=== PATIENT | male | born 1950 | race American Indian/Alaskan Native ===

== ENCOUNTER 2018-12-18 21:21 | Inpatient (IN) | payer MEDICARE ==
[2018-12-18] MEDS ORDERED: NACL 0.9% 1000 ML 1,000 ML IV ONE (21:36)
[2018-12-18 22:15] LABS: Hematocrit 22.3 % (35.5-45.6); Hemoglobin 6.5 gm/dl (11.8-15.2); Mean Corpuscular Volume 59 fl (84-94)
[2018-12-18 22:16] LABS: Mean Corpuscular HGB Conc 29 % (32-34); Red Cell Distribution Width 20.2 % (13.2-15.2)
[2018-12-18 22:17] LABS: Basophils % (Auto) 0.4 % (0.0-1.8); Eosinophils % (Auto) 0.4 % (0.0-4.3); Lymphocytes # (Auto) 2.7 K/mm3 (1.2-5.4); Lymphocytes % (Auto) 40.9 % (13.4-35.0); Monocytes # (Auto) 0.4 K/mm3 (0.0-0.8); Platelet Count 280 K/mm3 (140-440)
[2018-12-18 22:28] LABS: BUN/Creatinine Ratio 28; Blood Urea Nitrogen 25 mg/dL (9-20); Calcium 7.9 mg/dL (8.4-10.2); Hemolysis Index 9
[2018-12-19 00:05] LABS: Bacteria,Urine 3+ /HPF (Negative); Bilirubin,Urine NEG (Negative); Blood,Urine NEG (Negative); Color,Urine Yellow (Yellow); Mucus,Urine FEW /HPF; Urobilinogen,Urine < 2.0 mg/dL (<2.0)
[2018-12-19] MEDS ORDERED: NACL 0.9% 500 ML 500 ML IV ONE (00:08)
[2018-12-19 00:16] LABS: WBC,Urine > 182.0 /HPF (0.0-6.0)
[2018-12-19] MEDS ORDERED: ROCEPHIN/NS 1 GM/50 ML 1 GM/50 ML BAG IV ONE (01:00)
[2018-12-19] MEDS ORDERED: NACL 0.9% 1000 ML 1,000 ML ONE (01:01)
[2018-12-19] MEDS ORDERED: PROTONIX IV ONE (01:02)
--- NOTE | 2018-12-19 01:02 | Emergency Department Report ---
ED General Adult HPI - General Chief complaint: Altered Mental Status Stated complaint: ALTERED MENTAL STATUS Time Seen by Provider: 12/18/18 21:36 Source: EMS Mode of arrival: Stretcher Limitations: Physical Limitation - History of Present Illness Initial comments: Patient is a 68-year-old black male with a past history of CVA who is in a fpc who is presenting secondary to a low hemoglobin. The patient had blood work done at his facility earlier today that showed that his hemoglobin was 6.1. Patient's more sluggish and less talkative than normal. Patient is a poor historian secondary to previous stroke and expressive aphasia. No other additional information is known. When I asked the patient high he felt he was able to say "bad" - Related Data Home Medications Medication Instructions Recorded Confirmed Last Taken Acetaminophen [Acetaminophen TAB] 650 mg PO Q6HR PRN 08/29/17 11/05/17 Unknown Antacid [Alum-Mag Hydrox-Simeth 30 ml PO Q4HR PRN 08/29/17 11/05/17 Unknown [id number]/5Ml] Divalproex Dr [Depakote Dr] 500 mg PO DAILY 08/29/17 11/05/17 Unknown Divalproex ER [Depakote ER] 1,000 mg PO HS 08/29/17 11/05/17 Unknown Escitalopram [Lexapro] 10 mg PO HS 08/29/17 11/05/17 Unknown Finasteride [Proscar] 5 mg PO QDAY 08/29/17 11/05/17 Unknown Folic Acid [Folvite] 1 mg PO QDAY 08/29/17 11/05/17 Unknown Lactulose [Constulose] 10 ml PO Q24HR 08/29/17 11/05/17 Unknown Lisinopril [Zestril] 10 mg PO QDAY 08/29/17 11/05/17 Unknown Magnesium Hydroxide [Milk of 30 ml PO Q24H 08/29/17 11/05/17 Unknown Magnesia] OXcarbazepine [Trileptal] 300 mg PO BID 08/29/17 11/05/17 Unknown Pantoprazole [Protonix TAB] 40 mg PO QDAY 08/29/17 11/05/17 Unknown Polyethylene Glycol 3350 17 gm PO DAILY PRN 08/29/17 11/05/17 Unknown [Smoothlax] Tamsulosin [Flomax] 0.4 mg PO HS 08/29/17 11/05/17 Unknown lamoTRIgine [LaMICtal] 150 mg PO QDAY 08/29/17 11/05/17 Unknown levETIRAcetam [Keppra TAB] 750 mg PO BID 08/29/17 11/05/17 Unknown risperiDONE [Risperdal] 2 mg PO BID 08/29/17 11/05/17 Unknown Ondansetron [Zofran INJ] 4 mg IM Q6H PRN 11/05/17 11/05/17 Unknown Previous Rx's Medication Instructions Recorded Last Taken Type oxyCODONE /ACETAMINOPHEN [Percocet 1 tab PO Q6HR PRN #7 tablet 11/10/17 Unknown Rx 5/325 mg] Allergies Allergy/AdvReac Type Severity Reaction Status Date / Time No Known Allergies Allergy Unverified 08/29/17 12:01 ED Review of Systems ROS: Stated complaint: ALTERED MENTAL STATUS Other details as noted in HPI Comment: All other systems reviewed and negative ED Past Medical Hx - Past Medical History Hx Hypertension: Yes Hx GERD: Yes Hx Seizures: Yes Hx Psychiatric Treatment: Yes (depression, Schizophrenia) Hx HIV: No Additional medical history: BPH, Cerebral infarction, Cerebralvascular disease - Social History Smoking Status: Unknown if ever smoked - Medications Home Medications: Home Medications Medication Instructions Recorded Confirmed Last Taken Type Acetaminophen [Acetaminophen TAB] 650 mg PO Q6HR PRN 08/29/17 11/05/17 Unknown History Antacid [Alum-Mag Hydrox-Simeth 30 ml PO Q4HR PRN 08/29/17 11/05/17 Unknown History [phone]/5Ml] Divalproex Dr [Depakote Dr] 500 mg PO DAILY 08/29/17 11/05/17 Unknown History Divalproex ER [Depakote ER] 1,000 mg PO HS 08/29/17 11/05/17 Unknown History Escitalopram [Lexapro] 10 mg PO HS 08/29/17 11/05/17 Unknown History Finasteride [Proscar] 5 mg PO QDAY 08/29/17 11/05/17 Unknown History Folic Acid [Folvite] 1 mg PO QDAY 08/29/17 11/05/17 Unknown History Lactulose [Constulose] 10 ml PO Q24HR 08/29/17 11/05/17 Unknown History Lisinopril [Zestril] 10 mg PO QDAY 08/29/17 11/05/17 Unknown History Magnesium Hydroxide [Milk of 30 ml PO Q24H 08/29/17 11/05/17 Unknown History Magnesia] OXcarbazepine [Trileptal] 300 mg PO BID 08/29/17 11/05/17 Unknown History Pantoprazole [Protonix TAB] 40 mg PO QDAY 08/29/17 11/05/17 Unknown History Polyethylene Glycol 3350 17 gm PO DAILY PRN 08/29/17 11/05/17 Unknown History [Smoothlax] Tamsulosin [Flomax] 0.4 mg PO HS 08/29/17 11/05/17 Unknown History lamoTRIgine [LaMICtal] 150 mg PO QDAY 08/29/17 11/05/17 Unknown History levETIRAcetam [Keppra TAB] 750 mg PO BID 08/29/17 11/05/17 Unknown History risperiDONE [Risperdal] 2 mg PO BID 08/29/17 11/05/17 Unknown History Ondansetron [Zofran INJ] 4 mg IM Q6H PRN 11/05/17 11/05/17 Unknown History oxyCODONE /ACETAMINOPHEN [Percocet 1 tab PO Q6HR PRN #7 tablet 11/10/17 Unknown Rx 5/325 mg] ED Physical Exam - General Limitations: Physical Limitation General appearance: alert, in no apparent distress - Head Head exam: Present: atraumatic, normocephalic - Eye Eye exam: Present: normal appearance, PERRL, EOMI - ENT ENT exam: Present: mucous membranes moist - Neck Neck exam: Present: normal inspection - Respiratory Respiratory exam: Present: normal lung sounds bilaterally. Absent: respiratory distress, wheezes, rales, rhonchi - Cardiovascular Cardiovascular Exam: Present: regular rate, normal rhythm. Absent: systolic murmur, diastolic murmur, rubs, gallop - GI/Abdominal GI/Abdominal exam: Present: soft, normal bowel sounds. 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 Absent: rash ED Course Vital Signs 12/18/18 12/18/18 12/18/18 21:34 21:46 21:51 Temperature 97.6 F Pulse Rate 87 90 86 Respiratory 12 14 18 Rate Blood Pressure 96/36 96/36 O2 Sat by Pulse 93 99 96 Oximetry 12/18/18 12/18/18 12/18/18 22:00 22:16 22:30 Temperature Pulse Rate 84 86 80 Respiratory 14 15 17 Rate Blood Pressure 96/36 96/36 O2 Sat by Pulse 98 98 98 Oximetry ED Medical Decision Making - Lab Data Result diagrams: 12/18/18 21:47 12/18/18 21:47 Lab Results 12/18/18 12/18/18 12/18/18 Range/Units 21:47 21:47 23:41 WBC 6.6 (4.5-11.0) K/mm3 RBC 3.80 (3.65-5.03) M/mm3 Hgb 6.5 L (11.8-15.2) gm/dl Hct 22.3 L (35.5-45.6) % MCV 59 L (84-94) fl MCH 17 L (28-32) pg MCHC 29 L (32-34) % RDW 20.2 H (13.2-15.2) % Plt Count 280 (140-440) K/mm3 Lymph % (Auto) 40.9 H (13.4-35.0) % [place] % (Auto) 6.0 (0.0-7.3) % Eos % (Auto) 0.4 (0.0-4.3) % Baso % (Auto) 0.4 (0.0-1.8) % Lymph # 2.7 (1.2-5.4) K/mm3 [place] # 0.4 (0.0-0.8) K/mm3 Eos # 0.0 (0.0-0.4) K/mm3 Baso # 0.0 (0.0-0.1) K/mm3 Seg Neutrophils % 52.3 (40.0-70.0) % Seg Neutrophils # 3.5 (1.8-7.7) K/mm3 Sodium 137 (137-145) mmol/L Potassium 3.8 (3.6-5.0) mmol/L Chloride 97.5 L (98-107) mmol/L Carbon Dioxide 25 (22-30) mmol/L Anion Gap 18 mmol/L BUN 25 H (9-20) mg/dL Creatinine 0.9 (0.8-1.5) mg/dL Estimated GFR > 60 ml/min BUN/Creatinine Ratio 28 % Glucose 82 (75-100) mg/dL Calcium 7.9 L (8.4-10.2) mg/dL Urine Color Yellow (Yellow) Urine Turbidity Cloudy (Clear) Urine pH 7.0 (5.0-7.0) Ur Specific [place] 1.012 (1.003-1.030) Urine Protein 30 mg/dl (Negative) mg/dL Urine Glucose (UA) Neg (Negative) mg/dL Urine Ketones Neg (Negative) mg/dL Urine Blood Neg (Negative) Urine Nitrite Neg (Negative) Urine Bilirubin Neg (Negative) Urine Urobilinogen < 2.0 (<2.0) mg/dL Ur Leukocyte Esterase Lg (Negative) Urine WBC (Auto) > 182.0 H (0.0-6.0) /HPF Urine RBC (Auto) 8.0 (0.0-6.0) /HPF U Epithel Cells (Auto) 77.0 H (0-13.0) /HPF Urine Bacteria (Auto) 3+ (Negative) /HPF Ur Transition Epith Cell 2 /HPF Urine Mucus Few /HPF - Medical Decision Making Patient's Y positive has a low hemoglobin. Patient will be transfused. Patient also with the urinary tract infection given Rocephin. Difficult to obtain IV on the patient and did undergo multiple sticks but I was able to place a long 18 and the right upper arm. Blood pressure responded well to fluids. Patient to be admitted to the hospitalist service. Critical Care Time: Yes (30) Critical care attestation.: If time is entered above; I have spent that time in minutes in the direct care of this critically ill patient, excluding procedure time. ED Disposition Clinical Impression: GI bleed Qualifiers: GI bleed type/associated pathology: unspecified gastrointestinal hemorrhage type Qualified Code(s): K92.2 - Gastrointestinal hemorrhage, unspecified Anemia Qualifiers: Anemia type: unspecified type Qualified Code(s): D64.9 - Anemia, unspecified UTI (urinary tract infection) Qualifiers: Urinary tract infection type: acute cystitis Hematuria presence: without hematuria Qualified Code(s): N30.00 - Acute cystitis without hematuria Disposition: OP ADMIT IP TO THIS HOSP Is pt being admited?: Yes Does the pt Need Aspirin: No Condition: Stable Time of Disposition: 01:03
[2018-12-19] MEDS ORDERED: ZOFRAN IV PRN (01:17)
[2018-12-19] MEDS ORDERED: SODIUM CHLORIDE FLUSH SYRINGE 10 ML IV PRN (01:17)
[2018-12-19] MEDS ORDERED: TYLENOL PO PRN (01:17)
[2018-12-19 01:32] LABS: INR 1.04 (0.87-1.13)
[2018-12-19 01:33] LABS: Partial Thromboplastin Time 23.1 Sec. (24.2-36.6)
[2018-12-19] MEDS ORDERED: NACL 0.9% 1000 ML 1,000 ML IV SCH (02:00)
--- NOTE | 2018-12-19 02:32 | History and Physical Report ---
<ALIDA IRWIN - Last Filed: 12/19/18 05:37> History of Present Illness Date of examination: 12/19/18 Date of admission: 12/19/2018 Chief complaint: AMS History of present illness: Patient is a 68-year-old black male with PMHx of Hypertension, CVA (right sided hemiparesis) who was sent to the ER from a group home for evaluation with low hemoglobin. According to the ER note patient had blood work done at his facility earlier today, the results showed his hemoglobin was 6.1., according to EMS, group home staff had reported that the patient looks more tired and sleepy today and he is less talkative than normal. Physical exam showed that the patient is lethargic, open eyes to name, answer to questions briefly, unable to move his right side due to contraction, Patient is disorientated and unable to provide medical history. Review of patient's labs showed a hemoglobin of 6.5, UA positive for UTI, guaiac stool is positive in the ER, patient was using one pack of red blood cells in the ER and admitted for further evaluation of face GI bleed. 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) Family history: no significant family history Medications and Allergies Allergies Allergy/AdvReac Type Severity Reaction Status Date / Time No Known Allergies Allergy Unverified 08/29/17 12:01 Home Medications Medication Instructions Recorded Confirmed Last Taken Type Acetaminophen [Acetaminophen TAB] 650 mg PO Q6HR PRN 08/29/17 12/19/18 Unknown History Escitalopram [Lexapro] 10 mg PO HS 08/29/17 12/19/18 Unknown History Folic Acid [Folvite] 1 mg PO QDAY 08/29/17 12/19/18 Unknown History Lactulose [Constulose] 10 ml PO Q24HR PRN 08/29/17 12/19/18 Unknown History Lisinopril [Zestril] 10 mg PO QDAY 08/29/17 12/19/18 Unknown History Magnesium Hydroxide [Milk of 30 ml PO Q72H 08/29/17 12/19/18 Unknown History Magnesia] OXcarbazepine [Trileptal] 300 mg PO BID 08/29/17 12/19/18 Unknown History Pantoprazole [Protonix TAB] 40 mg PO QDAY 08/29/17 12/19/18 Unknown History Polyethylene Glycol 3350 17 gm PO DAILY PRN 08/29/17 12/19/18 Unknown History [Smoothlax] Tamsulosin [Flomax] 0.4 mg PO HS 08/29/17 12/19/18 Unknown History risperiDONE [Risperdal] 1.5 mg PO QHS 08/29/17 12/19/18 Unknown History Ondansetron [Zofran INJ] 4 mg IM Q6H PRN 11/05/17 12/19/18 Unknown History Antacid Ds (Nf) [Alum-Mag 30 ml PO Q4HR 12/19/18 12/19/18 Unknown History Hydrox-Simeth [id number]/5Ml (Nf)] Bisacodyl [Dulcolax suppos] 10 mg IN QDAY PRN 12/19/18 12/19/18 Unknown History Glycopyrrolate [Robinul] 1 mg PO TID 12/19/18 12/19/18 Unknown History Sennosides [Senokot] 17.2 mg PO QHS 12/19/18 12/19/18 Unknown History Sodium Phosphate,[place]-Dibasic 118 ml RC BID PRN 12/19/18 12/19/18 Unknown History [Fleet Enema] VALPROIC ACID Liq [DepaKENE Liq] 10 mg PO AC 12/19/18 12/19/18 Unknown History levETIRAcetam [Keppra] 7.5 ml PO BID 12/19/18 12/19/18 Unknown History Active Meds: Active Medications Acetaminophen (Tylenol) 650 mg PO Q4H PRN PRN Reason: Pain MILD(1-3)/Fever >100.5/CHRISTINE Sodium Chloride (Nacl 0.9% 1000 Ml) 1,000 mls @ 100 mls/hr IV DIRECT TIARRA Pantoprazole Sodium 80 mg/ (Sodium Chloride) 100 mls @ 10 mls/hr IV DIRECT TIARRA Ondansetron HCl (Zofran) 4 mg IV Q8H PRN PRN Reason: Nausea And Vomiting Sodium Chloride (Sodium Chloride Flush Syringe 10 Ml) 10 ml IV BID TIARRA Sodium Chloride (Sodium Chloride Flush Syringe 10 Ml) 10 ml IV PRN PRN PRN Reason: LINE FLUSH Review of Systems ROS unobtainable: due to mental status Exam - Constitutional Vitals: Temp Pulse Resp BP Pulse Ox 97.6 F 80 17 96/36 98 12/18/18 21:51 12/18/18 22:30 12/18/18 22:30 12/18/18 22:30 12/18/18 22:30 General appearance: Present: mild distress - EENT ENT: hearing intact - Neck Neck: Present: normal ROM - Respiratory Respiratory effort: normal Respiratory: bilateral: CTA - Cardiovascular Rhythm: regular Heart Sounds: Present: S1 & S2 - Extremities Extremities: no ischemia Peripheral Pulses: within normal limits - Abdominal General gastrointestinal: Present: non-tender, non-distended Male genitourinary: Present: deferred - Rectal Rectal Exam: deferred - Integumentary Integumentary: Present: warm, dry - Musculoskeletal Musculoskeletal: right sided weakness - Psychiatric Psychiatric: depressed - Neurologic Neurologic: focal deficits Results - Labs CBC & Chem 7: 12/18/18 21:47 12/18/18 21:47 Labs: Laboratory Last Values WBC 6.6 K/mm3 (4.5-11.0) 12/18/18 21:47 RBC 3.80 M/mm3 (3.65-5.03) 12/18/18 21:47 Hgb 6.5 gm/dl (11.8-15.2) L 12/18/18 21:47 Hct 22.3 % (35.5-45.6) L 12/18/18 21:47 MCV 59 fl (84-94) L 12/18/18 21:47 MCH 17 pg (28-32) L 12/18/18 21:47 MCHC 29 % (32-34) L 12/18/18 21:47 RDW 20.2 % (13.2-15.2) H 12/18/18 21:47 Plt Count 280 K/mm3 (140-440) 12/18/18 21:47 Lymph % (Auto) 40.9 % (13.4-35.0) H 12/18/18 21:47 [place] % (Auto) 6.0 % (0.0-7.3) 12/18/18 21:47 Eos % (Auto) 0.4 % (0.0-4.3) 12/18/18 21:47 Baso % (Auto) 0.4 % (0.0-1.8) 12/18/18 21:47 Lymph # 2.7 K/mm3 (1.2-5.4) 12/18/18 21:47 [place] # 0.4 K/mm3 (0.0-0.8) 12/18/18 21:47 Eos # 0.0 K/mm3 (0.0-0.4) 12/18/18 21:47 Baso # 0.0 K/mm3 (0.0-0.1) 12/18/18 21:47 Seg Neutrophils % 52.3 % (40.0-70.0) 12/18/18 21:47 Seg Neutrophils # 3.5 K/mm3 (1.8-7.7) 12/18/18 21:47 PT 14.2 Sec. (12.2-14.9) 12/19/18 00:40 INR 1.04 (0.87-1.13) 12/19/18 00:40 APTT 23.1 Sec. (24.2-36.6) L 12/19/18 00:40 Sodium 137 mmol/L (137-145) 12/18/18 21:47 Potassium 3.8 mmol/L (3.6-5.0) 12/18/18 21:47 Chloride 97.5 mmol/L (98-107) L 12/18/18 21:47 Carbon Dioxide 25 mmol/L (22-30) 12/18/18 21:47 Anion Gap 18 mmol/L 12/18/18 21:47 BUN 25 mg/dL (9-20) H 12/18/18 21:47 Creatinine 0.9 mg/dL (0.8-1.5) 12/18/18 21:47 Estimated GFR > 60 ml/min 12/18/18 21:47 BUN/Creatinine Ratio 28 % 12/18/18 21:47 Glucose 82 mg/dL (75-100) 12/18/18 21:47 Calcium 7.9 mg/dL (8.4-10.2) L 12/18/18 21:47 Urine Color Yellow (Yellow) 12/18/18 23:41 Urine Turbidity Cloudy (Clear) 12/18/18 23:41 Urine pH 7.0 (5.0-7.0) 12/18/18 23:41 Ur Specific [place] 1.012 (1.003-1.030) 12/18/18 23:41 Urine Protein 30 mg/dl mg/dL (Negative) 12/18/18 23:41 Urine Glucose (UA) Neg mg/dL (Negative) 12/18/18 23:41 Urine Ketones Neg mg/dL (Negative) 12/18/18 23:41 Urine Blood Neg (Negative) 12/18/18 23:41 Urine Nitrite Neg (Negative) 12/18/18 23:41 Urine Bilirubin Neg (Negative) 12/18/18 23:41 Urine Urobilinogen < 2.0 mg/dL (<2.0) 12/18/18 23:41 Ur Leukocyte Esterase Lg (Negative) 12/18/18 23:41 Urine WBC (Auto) > 182.0 /HPF (0.0-6.0) H 12/18/18 23:41 Urine RBC (Auto) 8.0 /HPF (0.0-6.0) 12/18/18 23:41 U Epithel Cells (Auto) 77.0 /HPF (0-13.0) H 12/18/18 23:41 Urine Bacteria (Auto) 3+ /HPF (Negative) 12/18/18 23:41 Ur Transition Epith Cell 2 /HPF 12/18/18 23:41 Urine Mucus Few /HPF 12/18/18 23:41 Blood Type A POSITIVE 12/19/18 00:40 Crossmatch See Detail 12/19/18 00:40 Assessment and Plan Assessment and plan: 1. Acute GI bleed 2. Acute blood loss anemia 3. Positive guaiac stool 4. Acute encephalopathy 5. Dehydration 6. Acute UTI 7. Hypertension (BP stable) 8. History of CVA (with right-sided hemiparesis) 9. Debilitating Plan: Patient is admitted for acute GI bleed Monitor H&H Q6hrs x3 Consult GI for evaluation 1 unit of PRBCs Keep NPO until seen by GI Hold all PO meds until ok by GI Patient's condition and Plan of care discussed with Dr Hernandez Further plan per GI recommendations Advance Directives: Yes VTE prophylaxis?: Chemical Plan of care discussed with patient/family: Yes <YOBANI HERNANDEZ - Last Filed: 12/19/18 21:34> History of Present Illness Date of admission: 12/19/18 01:17 Medications and Allergies Active Meds: Active Medications Acetaminophen (Tylenol) 650 mg PO Q4H PRN PRN Reason: Pain MILD(1-3)/Fever >100.5/CHRISTINE Famotidine (Pepcid) 20 mg IV BID [facility] Last Admin: 12/19/18 12:00 Dose: 20 mg Documented by: Ceftriaxone Sodium (Rocephin/Ns 1 Gm/50 Ml) 1 gm in 50 mls @ 100 mls/hr IV Q24HR [facility]; Protocol Last Admin: 12/19/18 11:51 Dose: 100 mls/hr Documented by: Levetiracetam 750 mg/ Dextrose 107.5 mls @ 400 mls/hr IV Q12HR [facility] Last Admin: 12/19/18 11:37 Dose: 400 mls/hr Documented by: Valproate Sodium 500 mg/ (Sodium Chloride) 105 mls @ 100 mls/hr IV Q12HR [facility] Last Admin: 12/19/18 12:08 Dose: 100 mls/hr Documented by: Dextrose/Sodium Chloride (D5ns) 1,000 mls @ 75 mls/hr IV DIRECT [facility] Last Admin: 12/19/18 17:03 Dose: 75 mls/hr Documented by: Ondansetron HCl (Zofran) 4 mg IV Q8H PRN PRN Reason: Nausea And Vomiting Sodium Chloride (Sodium Chloride Flush Syringe 10 Ml) 10 ml IV BID [facility] Last Admin: 12/19/18 11:59 Dose: 10 ml Documented by: Sodium Chloride (Sodium Chloride Flush Syringe 10 Ml) 10 ml IV PRN PRN PRN Reason: LINE FLUSH Exam - Constitutional Vitals: Temp Pulse Resp BP Pulse Ox 98.9 F 65 20 117/42 82 L 12/19/18 19:17 12/19/18 19:17 12/19/18 19:17 12/19/18 19:17 12/19/18 19:17 Results - Labs CBC & Chem 7: 12/19/18 12:15 12/18/18 21:47 Labs: Laboratory Last Values WBC 6.6 K/mm3 (4.5-11.0) 12/18/18 21:47 RBC 3.80 M/mm3 (3.65-5.03) 12/18/18 21:47 Hgb 7.0 gm/dl (11.8-15.2) L 12/19/18 12:15 Hct 24.1 % (35.5-45.6) L 12/19/18 12:15 MCV 59 fl (84-94) L 12/18/18 21:47 MCH 17 pg (28-32) L 12/18/18 21:47 MCHC 29 % (32-34) L 12/18/18 21:47 RDW 20.2 % (13.2-15.2) H 12/18/18 21:47 Plt Count 280 K/mm3 (140-440) 12/18/18 21:47 Lymph % (Auto) 40.9 % (13.4-35.0) H 12/18/18 21:47 [place] % (Auto) 6.0 % (0.0-7.3) 12/18/18 21:47 Eos % (Auto) 0.4 % (0.0-4.3) 12/18/18 21:47 Baso % (Auto) 0.4 % (0.0-1.8) 12/18/18 21:47 Lymph # 2.7 K/mm3 (1.2-5.4) 12/18/18 21:47 [place] # 0.4 K/mm3 (0.0-0.8) 12/18/18 21:47 Eos # 0.0 K/mm3 (0.0-0.4) 12/18/18 21:47 Baso # 0.0 K/mm3 (0.0-0.1) 12/18/18 21:47 Seg Neutrophils % 52.3 % (40.0-70.0) 12/18/18 21:47 Seg Neutrophils # 3.5 K/mm3 (1.8-7.7) 12/18/18 21:47 PT 14.2 Sec. (12.2-14.9) 12/19/18 00:40 INR 1.04 (0.87-1.13) 12/19/18 00:40 APTT 23.1 Sec. (24.2-36.6) L 12/19/18 00:40 Sodium 137 mmol/L (137-145) 12/18/18 21:47 Potassium 3.8 mmol/L (3.6-5.0) 12/18/18 21:47 Chloride 97.5 mmol/L (98-107) L 12/18/18 21:47 Carbon Dioxide 25 mmol/L (22-30) 12/18/18 21:47 Anion Gap 18 mmol/L 12/18/18 21:47 BUN 25 mg/dL (9-20) H 12/18/18 21:47 Creatinine 0.9 mg/dL (0.8-1.5) 12/18/18 21:47 Estimated GFR > 60 ml/min 12/18/18 21:47 BUN/Creatinine Ratio 28 % 12/18/18 21:47 Glucose 82 mg/dL (75-100) 12/18/18 21:47 Calcium 7.9 mg/dL (8.4-10.2) L 12/18/18 21:47 Iron 18 ug/dL (49-181) L 12/19/18 Unknown TIBC 362 mcg/dL (250-450) 12/19/18 Unknown Urine Color Yellow (Yellow) 12/18/18 23:41 Urine Turbidity Cloudy (Clear) 12/18/18 23:41 Urine pH 7.0 (5.0-7.0) 12/18/18 23:41 Ur Specific [place] 1.012 (1.003-1.030) 12/18/18 23:41 Urine Protein 30 mg/dl mg/dL (Negative) 12/18/18 23:41 Urine Glucose (UA) Neg mg/dL (Negative) 12/18/18 23:41 Urine Ketones Neg mg/dL (Negative) 12/18/18 23:41 Urine Blood Neg (Negative) 12/18/18 23:41 Urine Nitrite Neg (Negative) 12/18/18 23:41 Urine Bilirubin Neg (Negative) 12/18/18 23:41 Urine Urobilinogen < 2.0 mg/dL (<2.0) 12/18/18 23:41 Ur Leukocyte Esterase Lg (Negative) 12/18/18 23:41 Urine WBC (Auto) > 182.0 /HPF (0.0-6.0) H 12/18/18 23:41 Urine RBC (Auto) 8.0 /HPF (0.0-6.0) 12/18/18 23:41 U Epithel Cells (Auto) 77.0 /HPF (0-13.0) H 12/18/18 23:41 Urine Bacteria (Auto) 3+ /HPF (Negative) 12/18/18 23:41 Ur Transition Epith Cell 2 /HPF 12/18/18 23:41 Urine Mucus Few /HPF 12/18/18 23:41 Blood Type A POSITIVE 12/19/18 00:40 Antibody Screen Negative 12/19/18 00:40 Crossmatch See Detail 12/19/18 00:40 Assessment and Plan Assessment and plan: I personally discussed the patient with the [employer]AR[employer]ER-C and I agree with the above asse ssment and plan
[2018-12-19] MEDS ORDERED: PROTONIX 80 MG in NACL 0.9% 100 ML IV SCH (03:00)
[2018-12-19 07:08] LABS: Hemoglobin 6.9 gm/dl (11.8-15.2)
[2018-12-19] MEDS ORDERED: NACL 0.9% 500 ML 500 ML IV NR (08:00)
[2018-12-19] MEDS ORDERED: LEVAQUIN 750MG/150ML 750 MG/150 ML BAG IV SCH (10:00)
--- NOTE | 2018-12-19 10:03 | Gastroenterology Consultation ---
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 Upon admission, H/H was found to be 6.5/22.3 with stool occult positive to which GI has been consulted. Patient is previously known to our service. He was last seen by our group during prior hospitalizations last year (08/2017 & 10/2017) for anemia as well with no endoscopic procedures done at that time due to no active signs of bleeding. This morning patient was resting in bed w/o acute distress. Patient oriented to person but unable to provide history. History obtained via chart review. No evidence of active bleeding since admission per nursing such as hematemesis, melena, or hematochezia. No evidence of abd pain or N/V. Takes daily PPI and ASA. No know hx of liver disease or PUD. Last colonoscopy [place] [address] Mclain showed diverticulosis but otherwise normal. No previous EGD. Upon exam, rectal revealed light brown stool. According to nurse, patient was previous on hospice and a DNR at SNF. Past History Past Medical History: other (as per HPI) Past Surgical History: Other (brain) Social history: other (assisted resident) Medications and Allergies Allergies Allergy/AdvReac Type Severity Reaction Status Date / Time No Known Allergies Allergy Unverified 08/29/17 12:01 Home Medications Medication Instructions Recorded Confirmed Last Taken Type Acetaminophen [Acetaminophen TAB] 650 mg PO Q6HR PRN 08/29/17 12/19/18 Unknown History Escitalopram [Lexapro] 10 mg PO HS 08/29/17 12/19/18 Unknown History Folic Acid [Folvite] 1 mg PO QDAY 08/29/17 12/19/18 Unknown History Lactulose [Constulose] 10 ml PO Q24HR PRN 08/29/17 12/19/18 Unknown History Lisinopril [Zestril] 10 mg PO QDAY 08/29/17 12/19/18 Unknown History Magnesium Hydroxide [Milk of 30 ml PO Q72H 08/29/17 12/19/18 Unknown History Magnesia] OXcarbazepine [Trileptal] 300 mg PO BID 08/29/17 12/19/18 Unknown History Pantoprazole [Protonix TAB] 40 mg PO QDAY 08/29/17 12/19/18 Unknown History Polyethylene Glycol 3350 17 gm PO DAILY PRN 08/29/17 12/19/18 Unknown History [Smoothlax] Tamsulosin [Flomax] 0.4 mg PO HS 08/29/17 12/19/18 Unknown History risperiDONE [Risperdal] 1.5 mg PO QHS 08/29/17 12/19/18 Unknown History Ondansetron [Zofran INJ] 4 mg IM Q6H PRN 11/05/17 12/19/18 Unknown History oxyCODONE /ACETAMINOPHEN [Percocet 1 tab PO Q6HR PRN #7 tablet 11/10/17 12/19/18 Unknown Rx 5/325 mg] Antacid Ds (Nf) [Alum-Mag 30 ml PO Q4HR 12/19/18 12/19/18 Unknown History Hydrox-Simeth [phone]/5Ml (Nf)] Aspirin EC [Aspirin Enteric Coated 81 mg PO QDAY 12/19/18 12/19/18 Unknown History TAB] Bisacodyl [Dulcolax suppos] 10 mg [place] QDAY PRN 12/19/18 12/19/18 Unknown History Glycopyrrolate [Robinul] 1 mg PO TID 12/19/18 12/19/18 Unknown History Sennosides [Senokotxtra] 17.2 mg PO QHS 12/19/18 12/19/18 Unknown History Sodium Phosphate,Sharkey-Dibasic 118 ml RC BID PRN 12/19/18 12/19/18 Unknown History [Fleet Enema] VALPROIC ACID Liq [DepaKENE Liq] 10 mg PO AC 12/19/18 12/19/18 Unknown History levETIRAcetam [Keppra] 7.5 ml PO BID 12/19/18 12/19/18 Unknown History Active Meds: Active Medications Acetaminophen (Tylenol) 650 mg PO Q4H PRN PRN Reason: Pain MILD(1-3)/Fever >100.5/CHRISTINE Famotidine (Pepcid) 20 mg IV BID [facility] Sodium Chloride (Nacl 0.9% 1000 Ml) 1,000 mls @ 100 mls/hr IV DIRECT [facility] Ceftriaxone Sodium (Rocephin/Ns 1 Gm/50 Ml) 1 gm in 50 mls @ 100 mls/hr IV Q24HR [facility]; Protocol Levetiracetam 750 mg/ Dextrose 107.5 mls @ 400 mls/hr IV Q12HR [facility] Valproate Sodium 500 mg/ (Sodium Chloride) 105 mls @ 100 mls/hr IV Q12HR [facility] Sodium Chloride (Nacl 0.9% 500 Ml) 500 mls @ 0 mls/hr IV ONCE NR Stop: 12/19/18 15:00 Ondansetron HCl (Zofran) 4 mg IV Q8H PRN PRN Reason: Nausea And Vomiting Sodium Chloride (Sodium Chloride Flush Syringe 10 Ml) 10 ml IV BID TIARRA Sodium Chloride (Sodium Chloride Flush Syringe 10 Ml) 10 ml IV PRN PRN PRN Reason: LINE FLUSH medications reviewed/updated as required Review of Systems - Review of Systems ROS unobtainable: due to mental status Exam - Constitutional Vital Signs: Temp Pulse Resp BP Pulse Ox 98.1 F 69 18 129/35 98 12/19/18 08:00 12/19/18 08:00 12/19/18 08:00 12/19/18 08:00 12/19/18 08:00 General appearance: no acute distress, other (alert) - Respiratory Respiratory: bilateral: CTA (anterior) - Cardiovascular Rhythm: regular - Gastrointestinal General gastrointestinal: Present: soft, non-distended, normal bowel sounds Rectal Exam: other (light brown stool-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 (Matheus XIAO)) - Musculoskeletal Musculoskeletal: other (contracture of the right upper extremity) - Neurologic Neurological: oriented to person - Labs CBC & Chem 7: 12/19/18 06:52 12/18/18 21:47 Lab Results: Laboratory Results - last 24 hr 12/18/18 12/18/18 12/18/18 21:47 21:47 23:41 WBC 6.6 RBC 3.80 Hgb 6.5 L Hct 22.3 L MCV 59 L MCH 17 L MCHC 29 L RDW 20.2 H Plt Count 280 Lymph % (Auto) 40.9 H Sharkey % (Auto) 6.0 Eos % (Auto) 0.4 Baso % (Auto) 0.4 Lymph # 2.7 Sharkey # 0.4 Eos # 0.0 Baso # 0.0 Seg Neutrophils % 52.3 Seg Neutrophils # 3.5 PT INR APTT Sodium 137 Potassium 3.8 Chloride 97.5 L Carbon Dioxide 25 Anion Gap 18 BUN 25 H Creatinine 0.9 Estimated GFR > 60 BUN/Creatinine Ratio 28 Glucose 82 Calcium 7.9 L Urine Color Yellow Urine Turbidity Cloudy Urine pH 7.0 Ur Specific [place] 1.012 Urine Protein 30 mg/dl Urine Glucose (UA) Neg Urine Ketones Neg Urine Blood Neg Urine Nitrite Neg Urine Bilirubin Neg Urine Urobilinogen < 2.0 Ur Leukocyte Esterase Lg Urine WBC (Auto) > 182.0 H Urine RBC (Auto) 8.0 U Epithel Cells (Auto) 77.0 H Urine Bacteria (Auto) 3+ Ur Transition Epith Cell 2 Urine Mucus Few Blood Type Antibody Screen Crossmatch 12/19/18 12/19/18 12/19/18 00:40 00:40 06:52 WBC RBC Hgb 6.9 L Hct 23.0 L MCV MCH MCHC RDW Plt Count Lymph % (Auto) Sharkey % (Auto) Eos % (Auto) Baso % (Auto) Lymph # Sharkey # Eos # Baso # Seg Neutrophils % Seg Neutrophils # PT 14.2 INR 1.04 APTT 23.1 L Sodium Potassium Chloride Carbon Dioxide Anion Gap BUN Creatinine Estimated GFR BUN/Creatinine Ratio Glucose Calcium Urine Color Urine Turbidity Urine pH Ur Specific [place] Urine Protein Urine Glucose (UA) Urine Ketones Urine Blood Urine Nitrite Urine Bilirubin Urine Urobilinogen Ur Leukocyte Esterase Urine WBC (Auto) Urine RBC (Auto) U Epithel Cells (Auto) Urine Bacteria (Auto) Ur Transition Epith Cell Urine Mucus Blood Type A POSITIVE Antibody Screen Negative Crossmatch See Detail Assessment and Plan 1.anemia -stool occult positive -INR 1.04 -H/H 6.9/23.0- transfusion PRBCs pending -continue to monitor H/H and transfuse as needed -no active signs of bleeding (rectal revealed light brown stool) -last colonoscopy [address] Mclain showed diverticulosis but otherwise normal -etiology unclear -called and spoke with patient's family (sisterMukesh Sidhu [phone]) to discuss option of endoscopic evaluation of anemia with EGD/colonoscopy including risks vs benefits. She is undecided at this time if she would like us to proceed with procedures and would like some time to consider. -EGD/colonoscopy to be scheduled pending family consent -iron studies -Keep NPO for now -start on PPI -continue supportive care -will follow <SARBJIT DIEZ - Last Filed: 12/19/18 16:39> Medications and Allergies Active Meds: Active Medications Acetaminophen (Tylenol) 650 mg PO Q4H PRN PRN Reason: Pain MILD(1-3)/Fever >100.5/CHRISTINE Famotidine (Pepcid) 20 mg IV BID [facility] Last Admin: 12/19/18 12:00 Dose: 20 mg Documented by: Ceftriaxone Sodium (Rocephin/Ns 1 Gm/50 Ml) 1 gm in 50 mls @ 100 mls/hr IV Q24HR [facility]; Protocol Last Admin: 12/19/18 11:51 Dose: 100 mls/hr Documented by: Levetiracetam 750 mg/ Dextrose 107.5 mls @ 400 mls/hr IV Q12HR [facility] Last Admin: 12/19/18 11:37 Dose: 400 mls/hr Documented by: Valproate Sodium 500 mg/ (Sodium Chloride) 105 mls @ 100 mls/hr IV Q12HR [facility] Last Admin: 12/19/18 12:08 Dose: 100 mls/hr Documented by: Dextrose/Sodium Chloride (D5ns) 1,000 mls @ 75 mls/hr IV DIRECT TIARRA Ondansetron HCl (Zofran) 4 mg IV Q8H PRN PRN Reason: Nausea And Vomiting Sodium Chloride (Sodium Chloride Flush Syringe 10 Ml) 10 ml IV BID [facility] Last Admin: 12/19/18 11:59 Dose: 10 ml Documented by: Sodium Chloride (Sodium Chloride Flush Syringe 10 Ml) 10 ml IV PRN PRN PRN Reason: LINE FLUSH Exam - Constitutional Vital Signs: Temp Pulse Resp BP Pulse Ox 98.1 F 69 18 120/41 96 12/19/18 11:56 12/19/18 11:56 12/19/18 11:56 12/19/18 11:56 12/19/18 11:56 - Labs CBC & Chem 7: 12/19/18 12:15 12/18/18 21:47 Lab Results: Laboratory Results - last 24 hr 12/18/18 12/18/18 12/18/18 21:47 21:47 23:41 WBC 6.6 RBC 3.80 Hgb 6.5 L Hct 22.3 L MCV 59 L MCH 17 L MCHC 29 L RDW 20.2 H Plt Count 280 Lymph % (Auto) 40.9 H Sharkey % (Auto) 6.0 Eos % (Auto) 0.4 Baso % (Auto) 0.4 Lymph # 2.7 Sharkey # 0.4 Eos # 0.0 Baso # 0.0 Seg Neutrophils % 52.3 Seg Neutrophils # 3.5 PT INR APTT Sodium 137 Potassium 3.8 Chloride 97.5 L Carbon Dioxide 25 Anion Gap 18 BUN 25 H Creatinine 0.9 Estimated GFR > 60 BUN/Creatinine Ratio 28 Glucose 82 Calcium 7.9 L Iron TIBC Urine Color Yellow Urine Turbidity Cloudy Urine pH 7.0 Ur Specific [place] 1.012 Urine Protein 30 mg/dl Urine Glucose (UA) Neg Urine Ketones Neg Urine Blood Neg Urine Nitrite Neg Urine Bilirubin Neg Urine Urobilinogen < 2.0 Ur Leukocyte Esterase Lg Urine WBC (Auto) > 182.0 H Urine RBC (Auto) 8.0 U Epithel Cells (Auto) 77.0 H Urine Bacteria (Auto) 3+ Ur Transition Epith Cell 2 Urine Mucus Few Blood Type Antibody Screen Crossmatch 12/19/18 12/19/18 12/19/18 00:40 00:40 06:52 WBC RBC Hgb 6.9 L Hct 23.0 L MCV MCH MCHC RDW Plt Count Lymph % (Auto) Sharkey % (Auto) Eos % (Auto) Baso % (Auto) Lymph # Sharkey # Eos # Baso # Seg Neutrophils % Seg Neutrophils # PT 14.2 INR 1.04 APTT 23.1 L Sodium Potassium Chloride Carbon Dioxide Anion Gap BUN Creatinine Estimated GFR BUN/Creatinine Ratio Glucose Calcium Iron TIBC Urine Color Urine Turbidity Urine pH Ur Specific [place] Urine Protein Urine Glucose (UA) Urine Ketones Urine Blood Urine Nitrite Urine Bilirubin Urine Urobilinogen Ur Leukocyte Esterase Urine WBC (Auto) Urine RBC (Auto) U Epithel Cells (Auto) Urine Bacteria (Auto) Ur Transition Epith Cell Urine Mucus Blood Type A POSITIVE Antibody Screen Negative Crossmatch See Detail 12/19/18 12/19/18 12:15 Unknown WBC RBC Hgb 7.0 L Hct 24.1 L MCV MCH MCHC RDW Plt Count Lymph % (Auto) Sharkey % (Auto) Eos % (Auto) Baso % (Auto) Lymph # Sharkey # Eos # Baso # Seg Neutrophils % Seg Neutrophils # PT INR APTT Sodium Potassium Chloride Carbon Dioxide Anion Gap BUN Creatinine Estimated GFR BUN/Creatinine Ratio Glucose Calcium Iron 18 L TIBC 362 Urine Color Urine Turbidity Urine pH Ur Specific [place] Urine Protein Urine Glucose (UA) Urine Ketones Urine Blood Urine Nitrite Urine Bilirubin Urine Urobilinogen Ur Leukocyte Esterase Urine WBC (Auto) Urine RBC (Auto) U Epithel Cells (Auto) Urine Bacteria (Auto) Ur Transition Epith Cell Urine Mucus Blood Type Antibody Screen Crossmatch Assessment and Plan Pt seen and examined. I spoke with pt's sister, Shruthi Sidhu (she was a equity director at [employer] previously), and she is interested in comfort measures only. Would not recommend further blood work, transfusions, or endoscopic evaluation. Recommends Hospice, and I agree. Will sign off. Thanks.
--- NOTE | 2018-12-19 11:04 | Event Note ---
Date: 12/19/18 Patient is a 68-year-old black male with PMHx of Hypertension, CVA (right sided hemiparesis) who was sent to the ER from a correction for evaluation with low hemoglobin. will cont current mx and plan as dictated in h and P, will follow GI recommendation.
[2018-12-19] MEDS: KEPPRA 750 MG in D5W 100 ML IV SCH ×2 (11:37→21:44)
[2018-12-19] MEDS: ROCEPHIN/NS 1 GM/50 ML 1 GM/50 ML BAG IV SCH (11:51)
[2018-12-19] MEDS: SODIUM CHLORIDE FLUSH SYRINGE 10 ML IV SCH ×2 (11:59→21:47)
[2018-12-19] MEDS: PEPCID IV SCH ×2 (12:00→21:43)
[2018-12-19] MEDS: DepaCON 500 MG in NACL 0.9% 100 ML IV SCH ×2 (12:08→21:44)
[2018-12-19 12:32] LABS: Hematocrit 24.1 % (35.5-45.6)
[2018-12-19 12:42] LABS: Iron 18 ug/dL (49-181); Total Iron Binding Capacity 362 mcg/dL (250-450)
[2018-12-19] MEDS ORDERED: D5NS 1,000 ML IV SCH (14:00)
--- NOTE | 2018-12-19 17:28 | Discharge Summary ---
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 Upon admission, H/H was found to be 6.5/22.3 with stool occult positive to which GI has been consulted. No evidence of active bleeding since admission per nursing such as hematemesis, melena, or hematochezia. No evidence of abd pain or N/V. Takes daily PPI and ASA. No know hx of liver disease or PUD. Last colonoscopy [place] [address] Mclain showed diverticulosis but otherwise normal. No previous EGD. Upon exam, rectal revealed light brown stool. According to nurse, patient was previous on hospice and a DNR at SNF. Discussion made with patient's sister by GI and sister wished to continue hospice and send the patient back to SNF with hospice. Patient was then discharged back to SNF with hospice in stable condition. Discharge diagnosis: 1. Acute GI bleed 2. Acute blood loss anemia 3. Positive guaiac stool 4. Acute encephalopathy 5. Dehydration 6. Acute UTI 7. Hypertension (BP stable) 8. History of CVA (with right-sided hemiparesis) 9. 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
[2018-12-20] MEDS: ROCEPHIN/NS 1 GM/50 ML 1 GM/50 ML BAG IV SCH (09:24)
[2018-12-20] MEDS: PEPCID IV SCH (09:25)
[2018-12-20] MEDS: SODIUM CHLORIDE FLUSH SYRINGE 10 ML IV SCH (09:25)
[2018-12-20] MEDS: DepaCON 500 MG in NACL 0.9% 100 ML IV SCH (10:39)
[2018-12-20] MEDS: KEPPRA 750 MG in D5W 100 ML IV SCH (10:48)
[2018-12-20 11:18] VITALS: BP 124/59
== END 2018-12-20 14:12 | disposition hospice, inpatient (51) | DRG 378 ==
LOC: ED 21:21 → 4A 12-19 01:17
PROVIDERS: ADMIT Internal Medicine; ATTEND Internal Medicine
PROC: 05HY33Z Insertion of Infusion Device into Upper Vein, Percutaneous Approach (ICD-10-PCS; principal; 2018-12-19)
PROC: 30233N1 Transfusion of Nonautologous Red Blood Cells into Peripheral Vein, Percutaneous Approach (ICD-10-PCS; 2018-12-19)
DX: K92.2 Gastrointestinal hemorrhage, unspecified (principal); G93.40 Encephalopathy, unspecified; I69.351 Hemiplegia and hemiparesis following cerebral infarction affecting right dominant side; D62 Acute posthemorrhagic anemia; N30.00 Acute cystitis without hematuria; E86.0 Dehydration; F03.90 Unspecified dementia, unspecified severity, without behavioral disturbance, psychotic disturbance, mood disturbance, and anxiety; K21.9 Gastro-esophageal reflux disease without esophagitis; N40.0 Benign prostatic hyperplasia without lower urinary tract symptoms; Z66 Do not resuscitate; Z51.5 Encounter for palliative care; F20.9 Schizophrenia, unspecified; Z79.899 Other long term (current) drug therapy
CPT/HCPCS: 36415; 80048; 81001; 83550; 85014; 85018; 85025; 85610; 85730; 86850; 86900; 86901; 86920; 87076; 87086; 87186; 96365; G0378; C9113; J0696; J1953; J7030; J7042; P9016